=== PATIENT | male | born 1975 | race Hispanic/Latino ===

== ENCOUNTER 2017-07-16 14:39 | Emergency (ER) | payer BC, OTHER ==
[2017-07-16 14:46] VITALS: BMI 27.6
--- NOTE | 2017-07-16 14:54 | ED PDOC ---
Arrival/HPI - General Historian: Patient <Elizabeth Mullen - Last Filed: 07/18/17 20:39> <ShyamLiya pozo - Last Filed: 07/19/17 11:37> - General Chief Complaint: Medical Clearance Time Seen by Provider: 07/16/17 14:44 - History of Present Illness Narrative History of Present Illness (Text): 07/16/17 14:52 41yo male with no PMHx present to ED requesting alcohol detox. He denies Suicidal ideation, homicidal ideation, any other somatic complaint. (Elizabeth Mullen) Past Medical History - Provider Review Nursing Documentation Reviewed: Yes - Infectious Disease Hx of Infectious Diseases: None - Tetanus Immunization Tetanus Immunization: Unknown - Past Medical History Past Medical History: No Previous - Cardiac Hx Cardiac Disorders: No Hx Angina: No Hx Cardiac Arrhythmia: No Hx Circulatory Problems: No Hx Congestive Heart Failure: No Hx Heart Murmur: No Hx Heart Transplant: No Hx Hypertension: No Hx Internal Defibrillator: No Hx Mitral Valve Prolapse: No Hx Pacemaker: No Hx Peripheral Edema: No Hx Peripheral Vascular Disease: No - Pulmonary Hx Respiratory Disorders: No Hx Asthma: No Hx Chronic Obstructive Pulmonary Disease (COPD): No Hx Emphysema: No Hx Pneumonia: No Hx Respiratory Aspiration: No Hx Respiratory Tract Infection: No Hx Sleep Apnea: No Hx Tuberculosis: No - Neurological Hx Neurological Disorder: No Hx Alzheimer's Disease: No HX Cerebrovascular Accident: No Hx Dementia: No Hx Dizziness: No Hx Meningitis: No Hx Migraine: No Hx Parkinson's Disease: No Hx Seizures: No Hx Transient Ischemic Attacks (TIA): No - HEENT Hx HEENT Disorder: No Hx Blind: No Hx Cataracts: No Hx Deafness: No Hx Difficulty Chewing: No Hx Epistaxis: No Hx Glaucoma: No Hx Macular Degeneration: No - Renal Hx Renal Disorder: No Hx Dialysis: No Hx Kidney Stones: No Hx Neurogenic Bladder: No Hx Pyelonephritis: No Hx Renal Cancer: No Hx Renal Failure: No - Endocrine/Metabolic Hx Endocrine Disorders: No Hx Adrenal Cancer: No Hx Diabetes Insipidus: No Hx Diabetes Mellitus Type 1: No Hx Diabetes Mellitus Type 2: No Hx Hyperthyroidism: No Hx Hypothyroidism: No Hx Systemic Lupus Erythematosus: No - Hematological/Oncological Hx Blood Disorders: No Hx AIDS: No Hx Anemia: No Hx Cancer: No Hx Chemotherapy: No Hx Cirrhosis: No Hx Hemophilia: No Hx Hepatitis A: No Hx Hepatitis B: No Hx Hepatitis C: No Hx Metastasis: No Hx Shingles: No Hx Sickle Cell Disease: No Hx Unexplained Bleeding: No - Integumentary Hx Dermatological Disorder: No Hx Basal Cell Carcinoma: No Hx Eczema: No Hx Melanoma: No Hx Psoriasis: No Hx Squamous Cell Carcinoma: No - Musculoskeletal/Rheumatological Hx Musculoskeletal Disorders: Yes Hx Arthritis: No Hx Back Pain: Yes (intermitten lower back pain) Hx Degenerative Joint Disease: No Hx Falls: No Hx Fractures: No Hx Gout: No Hx Herniated Disk: No Hx Myasthenia Gravis: No Hx Osteoarthritis: No Hx Osteomyelitis: No Hx Osteoporosis: No Hx Rhabdomyolysis: No Hx Spinal Stenosis: No Hx Unsteady Gait: No Other/Comment: Patient reports occasional pain in wrists and knees, but no diagnosed arthritis - Gastrointestinal Hx Gastrointestinal Disorders: No Hx Colostomy: No Hx Crohn's Disease: No Hx Diverticulitis: No Hx Gall Bladder Disease: No Hx Gastroesophageal Reflux: No Hx Ileostomy: No Hx Liver Failure: No Hx Pancreatitis: No HX Swallowing Problems: No - Genitourinary/Gynecological Hx Genitourinary Disorders: No Hx Hematuria: No Hx Incontinence: No Hx Prostate Problems: No Hx Sexually Transmitted Diseases: No Hx Urinary Tract Infection: No - Psychiatric Hx Psychophysiologic Disorder: No Hx Depression: No Hx Substance Use: No - Surgical History Hx Amputation: No Hx Appendectomy: No Hx Cardiac Catheterization: No Hx Cholecystectomy: No Hx Coronary Stent: No Hx Gastric Bypass Surgery: No Hx Joint Replacement: No Hx Kidney Transplant: No Hx Liver Transplant: No Hx Mastectomy: No Hx Musculoskeletal Surgery: No Hx Open Heart Surgery: No Hx Orthopedic Surgery: No Hx Splenectomy: No Hx Valve Replacement: No - Anesthesia Hx Anesthesia: Yes Hx Anesthesia Reactions: No Hx Malignant Hyperthermia: No - Suicidal Assessment Feels Threatened In Home Enviroment: No <Diru,Happiness A - Last Filed: 07/18/17 20:39> Family/Social History - Physician Review Nursing Documentation Reviewed: Yes Family/Social History: Unknown Family HX Smoking Status: Never Smoked Hx Alcohol Use: Yes (Socially) Frequency of alcohol use: Few days per week Hx Substance Use: No <Diru,Happiness A - Last Filed: 07/18/17 20:39> Allergies/Home Meds <Diru,Happiness A - Last Filed: 07/18/17 20:39> <Liya Howe - Last Filed: 07/19/17 11:37> Allergies/Adverse Reactions: Allergies No Known Allergies Allergy (Verified 07/17/17 02:21) Home Medications: Home Meds Medication Instructions Recorded Confirmed Escitalopram [Lexapro] 5 mg PO DAILY 03/01/16 07/17/17 Review of Systems - Physician Review All systems were reviewed & negative as marked: Yes - Review of Systems Constitutional: Normal Eyes: Normal ENT: Normal Respiratory: Normal Cardiovascular: Normal Gastrointestinal: Normal Genitourinary Male: Normal Musculoskeletal: Normal Skin: Normal Neurological: Normal Endocrine: Normal Hemo/Lymphatic: Normal Psychiatric: Normal <Diru,Happiness A - Last Filed: 07/18/17 20:39> Physical Exam Vital Signs Reviewed: Yes Temperature: Afebrile Blood Pressure: Normal Pulse: Regular Respiratory Rate: Normal Appearance: Positive for: Well-Appearing, Non-Toxic, Comfortable Pain Distress: None Mental Status: Positive for: Alert and Oriented X 3 - Systems Exam Head: Present: Atraumatic, Normocephalic Pupils: Present: PERRL Extroacular Muscles: Present: EOMI Conjunctiva: Present: Normal Mouth: Present: Moist Mucous Membranes Neck: Present: Normal Range of Motion Respiratory/Chest: Present: Clear to Auscultation, Good Air Exchange. No: Respiratory Distress, Accessory Muscle Use Cardiovascular: Present: Regular Rate and Rhythm, Normal S1, S2. No: Murmurs Abdomen: Present: Normal Bowel Sounds. No: Tenderness, Distention, Peritoneal Signs Back: Present: Normal Inspection Upper Extremity: Present: Normal Inspection. No: Cyanosis, Edema Lower Extremity: Present: Normal Inspection. No: Edema Neurological: Present: GCS=15, CN II-XII Intact, Speech Normal Skin: Present: Warm, Dry, Normal Color. No: Rashes Psychiatric: Present: Alert, Oriented x 3, Normal Insight, Normal Concentration <Diru,Happiness A - Last Filed: 07/18/17 20:39> Vital Signs Temp Pulse Resp BP Pulse Ox 07/17/17 01:46 98.0 F 85 18 146/94 H 98 07/17/17 00:55 98.0 F 81 18 145/89 95 07/16/17 22:15 88 18 132/69 95 07/16/17 19:00 90 18 130/78 96 07/16/17 15:15 98.2 F 80 18 130/78 97 Medical Decision Making <PazElizabeth Monterroso - Last Filed: 07/18/17 20:39> <Liya Howe - Last Filed: 07/19/17 11:37> ED Course and Treatment: 07/16/17 18:39 Pt in ED for alcohol detox He was calm, hemodynamically stable in ED. Lab was unremarkable. Alcohol was 159. Drug screen pending. Pt was medically cleared for psych evaluation. He was seen in ED by SHER Valentin and he plan to transfer patient to [facility] [place] for detox. 07/16/17 21:55 Chest xray - No acute disease US was positive for benzo and opiates 07/16/17 22:17 EKG NSR @81bpm (Elizabeth Mullen) - Lab Interpretations Lab Results: 07/16/17 15:00 07/16/17 15:00 Lab Results 07/16/17 20:00: Urine Opiates Screen Positive H, Urine Methadone Screen Negative , Ur Barbiturates Screen Negative, Ur Phencyclidine Scrn Negative, Ur Amphetamines Screen Negative, U Benzodiazepines Scrn Positive H, U Oth Cocaine Metabols Negative, U Cannabinoids Screen Negative 07/16/17 20:00: Urine Color Yellow, Urine Appearance Clear, Urine pH 6.0, Ur Specific [place] 1.025, Urine Protein 30 H, Urine Glucose (UA) Negative, Urine Ketones 15 H, Urine Blood Negative, Urine Nitrate Negative, Urine Bilirubin Negative, Urine Urobilinogen 2.0 H, Ur Leukocyte Esterase Negative, Urine RBC 0 - 2, Urine WBC 1 - 3, Ur Epithelial Cells 0 - 2, Amorphous Sediment Few, Urine Bacteria Small, Urine Other Fiber 07/16/17 15:00: Alcohol, Quantitative 159 H 07/16/17 15:00: Salicylates < 1 L, Acetaminophen < 10.0 L 07/16/17 15:00: Sodium 143, Potassium 4.1, Chloride 101, Carbon Dioxide 31, Anion Gap 15, BUN 9, Creatinine 1.1, Est GFR ( Amer) > 60, Est GFR (Non- Af Amer) > 60, Random Glucose 85, Calcium 8.9, Total Bilirubin 0.6, AST 60 H, ALT 70 H, Alkaline Phosphatase 57, Total Protein 7.5, Albumin 4.3, Globulin 3.2 , Albumin/Globulin Ratio 1.4 07/16/17 15:00: WBC 9.7 D, RBC 4.94, Hgb 15.3, Hct 45.4, MCV 91.9, MCH 31.0, MCHC 33.7, RDW 13.7, Plt Count 294, MPV 8.7, Gran % 68.7 H, Lymph % (Auto) 23.1 , [place] % (Auto) 7.4 H, Eos % (Auto) 0.6 L, Baso % (Auto) 0.2, Gran # 6.67 H, Lymph # 2.2, Whiteside # 0.7 H, Eos # 0.1, Baso # 0.02 - RAD Interpretation Radiology Orders: 07/16/17 21:12 CHEST PORTABLE [RAD] Stat - PA / ACTUARIAL CONSULTANT / Resident Statement / has reviewed & agrees with the documentation as recorded. <Liya Howe - Last Filed: 07/19/17 11:37> Disposition/Present on Arrival - Present on Arrival Any Indicators Present on Arrival: No History of DVT/PE: No History of Uncontrolled Diabetes: No Urinary Catheter: No History of Decub. Ulcer: No History Surgical Site Infection Following: None - Disposition Have Diagnosis and Disposition been Completed?: Yes Disposition Time: 03:00 <Elizabeth Mullen - Last Filed: 07/18/17 20:39> <Liya Howe - Last Filed: 07/19/17 11:37> - Disposition Diagnosis: Alcohol intoxication Disposition: Transfer [facility] Patient Problems: Current Active Problems Problem Status Onset Alcohol use disorder, severe, dependence Acute Condition: STABLE Referrals: PCP,NO [Primary Care Provider] - Follow up with primary Forms: [employer] ([place])
[2017-07-16 15:17] VITALS: RESP 18
[2017-07-16 15:43] LABS: BASO # 0.02 K/mm3 (0.0-2.0); BASO % 0.2 % (0.0-3.0); EOS # 0.1 (0.0-0.7); EOS % 0.6 % (1.5-5.0); GRAN # 6.67 (1.4-6.5); GRAN % 68.7 % (50.0-68.0); HEMATOCRIT 45.4 % (42.0-52.0); LYMPH # 2.2 (1.2-3.4); LYMPH % 23.1 % (22.0-35.0); MEAN CELL VOLUME 91.9 fl (80.0-105.0); MEAN CORPUSCULAR HGB CONC 33.7 g/dl (31.0-37.0); MEAN PLATELET VOLUME 8.7 fl (7.0-11.0); MONO # 0.7 (0.1-0.6); MONO % 7.4 % (1.0-6.0); RED CELL DISTRIBUTION WIDTH 13.7 % (11.5-14.5); WHITE BLOOD COUNT 9.7 10^3/ul (4.5-11.0)
[2017-07-16 15:51] LABS: ALB/GLOB RATIO 1.4 (1.1-1.8); ALKALINE PHOSPHATASE 57 U/L (38-126); ALT/SGPT 70 U/L (7-56); AST/SGOT 60 U/L (17-59); BILIRUBIN,TOTAL 0.6 mg/dL (0.2-1.3); BLOOD UREA NITROGEN 9 mg/dL (7-21); CALCIUM 8.9 mg/dL (8.4-10.5); CARBON DIOXIDE 31 mmol/L (21-33); CHLORIDE 101 mmol/L (98-107); GFR AFRICAN-AMERICAN > 60; GLUCOSE,RANDOM 85 mg/dL (70-110); POTASSIUM 4.1 mmol/L (3.6-5.0); SODIUM 143 mmol/L (132-148); TOTAL PROTEIN 7.5 g/dL (5.8-8.3)
[2017-07-16 20:21] LABS: URINE BILIRUBIN NEGATIVE (NEGATIVE); URINE BLOOD NEGATIVE (NEGATIVE); URINE GLUCOSE (UA) NEGATIVE (NEGATIVE); URINE KETONE 15 mg/dL (NEGATIVE); URINE LEUKOCYTE ESTERASE NEGATIVE Leu/uL (NEGATIVE); URINE PROTEIN 30 mg/dL (<30 mg/dL)
[2017-07-16 20:22] LABS: URINE APPEARANCE CLEAR (CLEAR); URINE COLOR YELLOW (YELLOW)
[2017-07-16 20:35] LABS: URINE AMORPHOUS SEDIMENT FEW; URINE BACTERIA SMALL (NEG); URINE EPITHELIAL CELLS 0 - 2 /hpf (0-5); URINE RBC 0 - 2 /hpf (0-2)
[2017-07-17 00:56] VITALS: TEMP 98
[2017-07-17 01:46] VITALS: BP 146/94; PULSE 85; O2SAT 98
--- NOTE | 2017-07-17 08:53 | RAD ---
HISTORY: medical clearance COMPARISON: Chest x-ray performed 03/01/16 TECHNIQUE: Chest, one view. FINDINGS: Patient's chin obscures evaluation of the lung apices. Examination limited by habitus. LUNGS: No focal consolidation. Please note that chest x-ray has limited sensitivity for the detection of pulmonary masses. PLEURA: No significant pleural effusion identified. No definite pneumothorax . CARDIOVASCULAR: Heart size appears top normal. OSSEOUS STRUCTURES: No acute osseous abnormality identified. VISUALIZED UPPER ABDOMEN: Unremarkable. OTHER FINDINGS: None. IMPRESSION: No focal consolidation, significant pleural effusion, or definite pneumothorax identified.
--- NOTE | 2017-07-17 16:11 | CARD ---
APPROVED REPORT EKG Measurement Heart [id number] <Conclusion> Normal sinus rhythm Normal ECG
== END 2017-07-17 01:50 | disposition short-term general hospital (02) ==
LOC: ED 14:39
DX: F10.129 Alcohol abuse with intoxication, unspecified (principal); Y90.6 Blood alcohol level of 120-199 mg/100 ml
CPT/HCPCS: 71010; 80053; 81001; 85025; 90791; 93005; 99284; G0480

== ENCOUNTER 2017-10-16 10:51 | Emergency (ER) | payer OTHER, BC ==
[2017-10-16 10:52] VITALS: BMI 27.6
[2017-10-16 11:01] VITALS: BP 141/98; TEMP 98.2
[2017-10-16 11:03] VITALS: PULSE 90; RESP 18; O2SAT 95
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
--- NOTE | 2017-10-16 12:27 | RAD ---
PROCEDURE: Cervical Spine Radiographs. HISTORY: Pain. COMPARISON: None. FINDINGS: BONES: Alignment maintained. No fracture. Dens Intact. DISC SPACES: Normal. SOFT TISSUES: Normal. No prevertebral soft tissue swelling. OTHER FINDINGS: None. IMPRESSION: Normal cervical spine radiographs
== END 2017-10-16 12:26 | disposition home or self-care (01) ==
LOC: ED 10:51
DX: S16.1XXA Strain of muscle, fascia and tendon at neck level, initial encounter (principal); V49.9XXA Car occupant (driver) (passenger) injured in unspecified traffic accident, initial encounter

== ENCOUNTER 2018-01-20 13:58 | Emergency (ER) | payer OTHER, BC ==
[2018-01-20 14:10] VITALS: RESP 18; BMI 26.9
--- NOTE | 2018-01-20 14:43 | ED PDOC ---
Arrival/HPI - General Chief Complaint: Medical Clearance Time Seen by Provider: 01/20/18 14:11 - History of Present Illness Narrative History of Present Illness (Text): 01/20/18 14:48 Patient is a 42 year old male who presents to the Emergency department with police to undergo drug testing. Patient was asked and states he has no medical complaints, and is present solely for blood and urine collection for drug testing. Past Medical History - Provider Review Nursing Documentation Reviewed: Yes - Infectious Disease Hx of Infectious Diseases: None - Tetanus Immunization Tetanus Immunization: Unknown - Past Medical History Past Medical History: No Previous - Cardiac Hx Cardiac Disorders: No - Pulmonary Hx Respiratory Disorders: No - Neurological Hx Neurological Disorder: No - HEENT Hx HEENT Disorder: No - Renal Hx Renal Disorder: No - Endocrine/Metabolic Hx Endocrine Disorders: No - Hematological/Oncological Hx Blood Disorders: No - Integumentary Hx Dermatological Disorder: No - Musculoskeletal/Rheumatological Hx Musculoskeletal Disorders: Yes Hx Back Pain: Yes (intermitten lower back pain) Other/Comment: Patient reports occasional pain in wrists and knees, but no diagnosed arthritis - Gastrointestinal Hx Gastrointestinal Disorders: No Hx Colostomy: No Hx Crohn's Disease: No Hx Diverticulitis: No Hx Gall Bladder Disease: No Hx Pancreatitis: No - Genitourinary/Gynecological Hx Genitourinary Disorders: No Hx Hematuria: No Hx Incontinence: No Hx Prostate Problems: No Hx Sexually Transmitted Diseases: No Hx Urinary Tract Infection: No - Psychiatric Hx Psychophysiologic Disorder: No Hx Depression: Yes Hx Substance Use: No (denied) - Surgical History Hx Amputation: No Hx Appendectomy: No Hx Cardiac Catheterization: No Hx Cholecystectomy: No Hx Coronary Stent: No Hx Gastric Bypass Surgery: No Hx Joint Replacement: No Hx Kidney Transplant: No Hx Liver Transplant: No Hx Mastectomy: No Hx Musculoskeletal Surgery: No Hx Open Heart Surgery: No Hx Orthopedic Surgery: No Hx Splenectomy: No Hx Valve Replacement: No - Anesthesia Hx Anesthesia: Yes Hx Anesthesia Reactions: No Hx Malignant Hyperthermia: No - Suicidal Assessment Feels Threatened In Home Enviroment: No Family/Social History - Physician Review Nursing Documentation Reviewed: Yes Family/Social History: No Known Family HX Smoking Status: Never Smoked Hx Alcohol Use: Yes Frequency of alcohol use: Socially Hx Substance Use: No (denied) Allergies/Home Meds Allergies/Adverse Reactions: Allergies No Known Allergies Allergy (Verified 10/16/17 11:01) Home Medications: Home Meds Medication Instructions Recorded Confirmed Escitalopram [Lexapro] 5 mg PO DAILY 03/01/16 10/16/17 Review of Systems - Review of Systems Systems not reviewed;Unavailable: Other (Deferred due to the fact that this visit is for blood and urine and patient has no chief complaints and is not seeking any medical care.) Physical Exam - Physical Exam Physical Exam Limitations: Other (Deferred due to the fact that this visit is for blood and urine and patient has no chief complaints and is not seeking any medical care) Vital Signs Reviewed: Yes Vital Signs Temp Pulse Resp BP Pulse Ox 01/20/18 14:25 98.9 F 96 H 18 141/67 100 01/20/18 13:58 98.4 F 96 H 18 161/86 H 97 Temperature: Afebrile Blood Pressure: Hypertensive Pulse: Regular Respiratory Rate: Normal Appearance: Positive for: Well-Appearing Mental Status: Positive for: Alert and Oriented X 3 Medical Decision Making ED Course and Treatment: 01/20/18 14:48 Impression: Patient is a 42 year old male who is brought to the Emergency department by police for urine and blood collection and testing. Plan: --Will collect blood and urine as requested. Progress Notes: 01/20/18 14:36 Discussed with and nurse barber or beauty shop manager about how to proceed with testing. It was decided that it would be optimal to do both testing, the inhouse testing without chain of custody, and the Police Department's chain of custody testing as well. - Lab Interpretations Lab Results: Lab Results 01/20/18 15:56: Alcohol, Quantitative < 10 01/20/18 15:56: Urine Opiates Screen Negative, Urine Methadone Screen Negative, Ur Barbiturates Screen Negative, Ur Phencyclidine Scrn Negative, Ur Amphetamines Screen Negative, U Benzodiazepines Scrn Negative, U Oth Cocaine Metabols Negative, U Cannabinoids Screen Negative - Scribe Statement The provider has reviewed the documentation as recorded by the Collinibmarcelo Barba Provider Scribe Attestation: All medical record entries made by the Scribe were at my direction and personally dictated by me. I have reviewed the chart and agree that the record accurately reflects my personal performance of the history, physical exam, medical decision making, and the department course for this patient. I have also personally directed, reviewed, and agree with the discharge instructions and disposition. Disposition/Present on Arrival - Present on Arrival Any Indicators Present on Arrival: No History of DVT/PE: No History of Uncontrolled Diabetes: No Urinary Catheter: No History of Decub. Ulcer: No History Surgical Site Infection Following: None - Disposition Have Diagnosis and Disposition been Completed?: Yes Diagnosis: Encounter for laboratory test Disposition: HOME/ ROUTINE Disposition Time: 16:43 Patient Plan: Discharge Condition: GOOD Additional Instructions: Mr Gregory, Testing here today for Alcohol and Toxicology were negative. Best- Dr Evens Matthews Forms: [employer] (Portuguese)
[2018-01-20 16:31] LABS: BENZODIAZEPINES, UR NEGATIVE (NEGATIVE)
[2018-01-20 16:40] LABS: BARBITURATES, UR NEGATIVE (NEGATIVE); OPIATES, UR NEGATIVE (NEGATIVE); PHENCYCLIDINE, UR NEGATIVE (NEGATIVE)
[2018-01-20 16:59] VITALS: BP 151/73; PULSE 93; TEMP 98.3
[2018-01-20 17:02] VITALS: O2SAT 100
== END 2018-01-20 17:09 | disposition home or self-care (01) ==
LOC: ED 13:58
DX: Z00.00 Encounter for general adult medical examination without abnormal findings (principal)